=== PATIENT | female | born 1995 | race Caucasian/White ===

== ENCOUNTER 2017-04-27 22:35 | Emergency (ER) | payer SELFPAY ==
[2017-04-27 22:44] VITALS: BP 115/59; BMI 31.3
--- NOTE | 2017-04-27 23:08 | DR.GENAD ---
HPI - PCP Primary Care Physician: NFD - Complaint/Symptoms Chief Complaint Doctors Comments: She c/o vaginal spotting and cramps onset today. Also there was blood noted with wipping after urination. She denies dysuria or flank pain. She an indwelling IUD placed about 8 months ago for contraceptive purposes. Prior to that she had been on I.M Depo. She has not had menses in > 1 year. There is no associated nausea or vomitting. Chief Complaint:: PT STATES" I'M HAVING SOME BLEEDING WHEN I GO AND PEE AND WHEN I WIPE I SEE BLOOD. LOWER ABD PAIN" - Nurses notes reviewed Nurses Notes Review: Yes - Source History Provided: Patient - Mode of Arrival Mode of Arrival: Ambulatory - Timing Onset of Chief Complaint: 04/27/17 Came on: Gradually - Duration Duration: Intermittent Duration: Hours PMH - PMH Past Medical History: No Past Surgical History: Yes Surgical History: - Family History History of Family Medical Conditions: No - Social History Type of Tobacco Use: Cigarettes Does any household member use tobacco: Yes Alcohol Use: None Do you use any recreational Drugs:: No Lives With: Family Lives Where: Home - infectious screening In the last 2 months have you had wt loss of >10#?: NO Have you had fever, night sweats or hemotysis?: No Have you traveled outside the country in the last 6 months?: No Isolation: Standard ROS - Review of Systems Constitutional: No Symptoms Reported Eyes: No Symptoms Reported ENTM: No Symptoms Reported Respiratoy: No Symptoms Reported Cardiovascular: No Symptoms Reported Gastrointestinal/Abdominal: Abdominal Pain (suprapubic) Genitourinary: No Symptoms Reported (vaginal spotting), Other Neurological: No Symptoms Reported Musculoskeletal: No Symptoms Reported Integumentary: No Symptoms Reported Hematologic/Lymphatic: No Symptoms Reported Endocrine: No Symptoms Reported Psychiatric: No Symptoms Reported All Other Systems: Reviewed and Negative PE - Vital Signs Vitals: Temperature 98.2 F Pulse Rate 86 Respiratory Rate 18 Blood Pressure 115/59 O2 Sat by Pulse Oximetry 100 - General Limitations: No Limitations General Appearance: Alert, In No Apparent Distress - Head Head Exam: Normal Inspection - Eyes Eye exam: Normal Appearance - ENT ENT Exam: Normal Exam - Neck Neck Exam: Normal Inspection, Full ROM, Trachea Midline - Chest Chest Inspection: Normal Inspection, Symmetric Chest Wall Rise - Respiratory Respiratory Exam: Normal Lung Sounds Bilat - Cardiovascular Cardiovascular Exam: Regular Rate, Normal Rhythm, +S1, +S2 - Abdominal Exam Abdominal Exam: Normal Inspection, Normal Bowel Sounds, Soft, Tenderness ( suprapubic) - Extremities Extremities Exam: Normal Inspection - Back Back Exam: Normal Inspection - Neurologic Neurological Exam: Alert, Oriented X3, CN II-XII Intact - Psychiatric Psychiatric Exam: Normal Affect, Normal Mood - Skin Skin Exam: Warm, Dry, Intact, Normal Color Course - Reevaluation 1st: Improved - Education/Counseling Education/Counseling: Patient, Family, Education, Counseling Educated On: Treatment, Diagnosis, Prognosis, Needs for Follow Up (with your Assistant Operations Manager.) ROR - Labs Reviewed Result Diagrams: 04/27/17 23:10 Laboratory: WBC 6.7 X10^3/uL (3.6-10.0) 04/27/17 23:10 RBC 5.48 X10^6/uL (3.5-5.4) H 04/27/17 23:10 Hgb 14.9 g/dL (12.0-16.0) 04/27/17 23:10 Hct 43.5 % (36.0-47.0) 04/27/17 23:10 MCV 79.4 fL (80.0-100.0) L 04/27/17 23:10 MCH 27.2 pg (27.0-34.0) 04/27/17 23:10 MCHC 34.2 g/dL (33.0-35.0) 04/27/17 23:10 RDW 14.4 % (11.6-16.5) 04/27/17 23:10 Plt Count 227 X10^3/uL (150.0-450.0) 04/27/17 23:10 MPV 8.7 fL (7.4-11.0) 04/27/17 23:10 Neut % 61.3 % (42.0-75.0) 04/27/17 23:10 Lymph % 30.6 % (21.0-51.0) 04/27/17 23:10 [place] % 6.5 % (0.0-13.0) 04/27/17 23:10 Eos % 0.9 % (0.9-2.9) 04/27/17 23:10 Baso % 0.7 % (0.2-1.0) 04/27/17 23:10 Neut # 4.1 x10^3/uL (2.2-4.8) 04/27/17 23:10 Lymph # 2.0 X10^3/uL (1.3-2.9) 04/27/17 23:10 [place] # 0.4 x10^3/uL (0.3-0.8) 04/27/17 23:10 Eos # 0.1 x10^3/uL (0.0-0.2) 04/27/17 23:10 Baso # 0.0 X10^3/uL (0.0-0.1) 04/27/17 23:10 Absolute Nucleated RBC 0.1 /100WBC 04/27/17 23:10 HCG, Qual Negative <10 mIU/mL 04/27/17 23:10 Specimen Type Clean catch urine 04/27/17 23:05 Urine Color Yellow (YELLOW) 04/27/17 23:05 Urine Appearance Slightly hazy (CLEAR) 04/27/17 23:05 Urine pH 5.0 (5.0 - 8.0) 04/27/17 23:05 Ur Specific [place] 1.015 (1.000-1.030) 04/27/17 23:05 Urine Protein Negative (NEGATIVE) 04/27/17 23: Urine Glucose (UA) Negative (NEGATIVE) 04/27/17 23: Urine Ketones Negative (NEGATIVE) 04/27/17 23:05 Urine Occult Blood 4+ (NEGATIVE) 04/27/17 23: Urine Nitrite Negative (NEGATIVE) 04/27/17 23: Urine Bilirubin Negative (NEGATIVE) 04/27/17 23:05 Urine Urobilinogen Normal (NORMAL) 04/27/17 23:05 Ur Leukocyte Esterase 1+ (NEGATIVE) 04/27/17 23:05 Urine RBC 1-4 /HPF (NONE SEEN) 04/27/17 23:05 Urine WBC 1-4 /HPF (NONE SEEN) 04/27/17 23:05 Ur Squamous Epith Cells Numerous /HPF (NEGATIVE) 04/27/17 23:05 Urine Bacteria Trace /HPF (NEGATIVE) 04/27/17 23:05 Ur Culture Indicated? No/not indicated 04/27/17 23: - Diagnosis Discharge Problem: Pelvic cramping, IUD contraception - Discharge Plan Disposition: HOME, SELF-CARE Condition: Stable - Follow ups/Referrals Follow ups/Referrals: NFD,None [Primary Care Provider] - 3 days - Instructions
[2017-04-27 23:16] LABS: BILIRUBIN,URINE NEGATIVE (NEGATIVE); BLOOD/HEMOGLOBIN,URINE 4+ (NEGATIVE); GLUCOSE, URINE NEGATIVE (NEGATIVE); KETONES,URINE NEGATIVE (NEGATIVE); LEUKOCYTE ESTERASE ,URINE 1+ (NEGATIVE); NITRITES,URINE NEGATIVE (NEGATIVE); PROTEIN,URINE NEGATIVE (NEGATIVE); UROBILINOGEN,URINE NORMAL (NORMAL)
[2017-04-27 23:20] LABS: BASOPHILS % (AUTO) 0.7 % (0.2-1.0); EOSINOPHILS # (AUTO) 0.1 x10^3/uL (0.0-0.2); EOSINOPHILS % (AUTO) 0.9 % (0.9-2.9); HEMATOCRIT 43.5 % (36.0-47.0); HEMOGLOBIN 14.9 g/dL (12.0-16.0); LYMPHOCYTES % (AUTO) 30.6 % (21.0-51.0); MEAN CORPUSCULAR HEMOGLOBIN 27.2 pg (27.0-34.0); MEAN CORPUSCULAR HGB CONC 34.2 g/dL (33.0-35.0); MEAN CORPUSCULAR VOLUME 79.4 fL (80.0-100.0); MEAN PLATELET VOLUME 8.7 fL (7.4-11.0); MONOCYTES # (AUTO) 0.4 x10^3/uL (0.3-0.8); MONOCYTES % (AUTO) 6.5 % (0.0-13.0); NEUTROPHILS # (AUTO) 4.1 x10^3/uL (2.2-4.8); NEUTROPHILS % (AUTO) 61.3 % (42.0-75.0); PLATELET COUNT 227 X10^3/uL (150.0-450.0); RED BLOOD COUNT 5.48 X10^6/uL (3.5-5.4); RED CELL DISTRIBUTION WIDTH 14.4 % (11.6-16.5); WHITE BLOOD COUNT 6.7 X10^3/uL (3.6-10.0)
[2017-04-27 23:27] LABS: APPEARANCE,URINE SLIGHTLY HAZY (CLEAR); BACTERIA,URINE TRACE /HPF (NEGATIVE); COLOR,URINE YELLOW (YELLOW); SQUAMOUS EPITHELIAL CELL,UR NUMEROUS /HPF (NEGATIVE)
[2017-04-27 23:27] LABS: SERUM PREGNANCY TEST, QUAL NEGATIVE <10 mIU/mL
[2017-04-27] MEDS ORDERED: MOTRIN TAB 600 MG PO ONE ×2 (23:44→23:47)
[2017-04-27] MEDS ORDERED: MACROBID CAP 100 MG EXT REL PO ONE (23:47)
[2017-04-28] MEDS ORDERED: MACROBID CAP 100 MG EXT REL PO ONE (23:43)
== END 2017-04-28 00:12 | disposition home or self-care (01) ==
LOC: ER 22:35
DX: R10.2 Pelvic and perineal pain (principal); Z30.430 Encounter for insertion of intrauterine contraceptive device
CPT/HCPCS: 36415; 81001; 84703; 85025; 99282; 99283